=== PATIENT | male | born 1995 | race African-American/Black ===

== ENCOUNTER 2017-03-17 22:37 | Emergency (ER) | payer OTHER ==
[~2017-03-17] VITALS: Ht 175.3 cm; Wt 70.0 kg
[2017-03-18 00:31] VITALS: BP 124/87
== END 2017-03-18 00:31 | disposition home or self-care (01) ==
LOC: ER 22:37
DX: T40.991A Poisoning by other psychodysleptics [hallucinogens], accidental (unintentional), initial encounter (principal); T39.1X1A Poisoning by 4-Aminophenol derivatives, accidental (unintentional), initial encounter; T42.4X1A Poisoning by benzodiazepines, accidental (unintentional), initial encounter; R55 Syncope and collapse; R53.83 Other fatigue; Y92.89 Other specified places as the place of occurrence of the external cause
CPT/HCPCS: 36415; 80307; 80329; 99284